=== PATIENT | female | born 1985 | race Caucasian/White ===

== ENCOUNTER 2016-09-15 06:13 | Emergency (ER) | payer BC ==
[2016-09-15 07:10] VITALS: BP 125/75
--- NOTE | 2016-09-15 07:18 | EDM.PDOC ---
ED HPI Trauma - General Chief Complaint: Lower Extremity Injury/Pain Stated Complaint: FALL INJURED LEGS Time Seen by Provider: 09/15/16 06:55 Source: Reports: Patient, RN notes reviewed - History of Present Illness INITIAL COMMENTS - FREE TEXT/NARRATIVE: 31-year-old female comes in with left knee injury. She tripped and fell over"a kiddy pool" late last night walking in the dark. She fell forward landing hard on both knees. Right knee discomfort is fairly mild. The left knee discomfort is fairly severe. She has pain with motion and also pain with weightbearing. No other major discomfort. The discomfort is fairly generalized but more severe anteriorly. Allergies/ADRs: Allergies ceftriaxone [From Rocephin] Allergy (Verified 09/15/16 06:53) Difficulty Breathing Penicillins Allergy (Verified 09/15/16 06:53) Hives Home Medications: Ambulatory Orders FLUoxetine [PROzac] 09/15/16 LORazepam [Ativan] 09/15/16 Review of Systems - Review of Systems Review Of Systems: See Below Constitutional: Reports: no symptoms Eyes: Reports: no symptoms Ears: Reports: no symptoms Nose: Reports: no symptoms Mouth/Throat: Reports: no symptoms Respiratory: Denies: Shortness of Breath Cardiovascular: Denies: chest pain GI/Abdominal: Denies: Abdominal pain, Nausea, Vomiting Musculoskeletal: Reports: joint pain (Left knee) Skin: Reports: no symptoms Neurological: Denies: Numbness, Tingling Trauma Exam - Physical Exam Exam: See Below General Appearance: Reports: alert, mild distress Head: Reports: atraumatic Throat/Mouth: Reports: Normal inspection Neck: Reports: full range of motion Respiratory Exam: Reports: no respiratory distress, lungs clear Cardiovascular: Reports: regular rate, rhythm Extremities: Reports: bony-point tenderness (Anterior knee, medial and lateral knee), other (Joint is stable, no effusion, pain with movement) Course - Vital Signs Last Recorded V/S: Last Vital Signs Temp 98.5 F 09/15/16 07:07 Pulse 78 09/15/16 07:07 Resp 18 09/15/16 07:07 BP 125/75 09/15/16 07:07 Pulse Ox 98 09/15/16 07:07 - Orders/Labs/Meds Orders: Active Orders 24 hr Category Date Time Status Knee Min 4V Lt [CR] Stat Exams 09/15/16 07:10 Taken Durable Medical Equipment for Discharge [DME for Oth 09/15/16 07:25 Ordered Discharge] [COMM] Stat - Re-Assessments/Exams Free Text/Narrative Re-Assessment/Exam: 09/15/16 07:22 x-ray show no fracture Departure - Departure Time of Disposition: 07:22 Disposition: Home, Self-Care 01 Condition: fair Clinical Impression: Fall Qualifiers: Encounter type: initial encounter Qualified Code(s): W19.XXXA - Unspecified fall, initial encounter Knee contusion Qualifiers: Encounter type: initial encounter Laterality: left Qualified Code(s): S80.02XA - Contusion of left knee, initial encounter Referrals: Daja Smith PA-C [Primary Care Provider] - Forms: ED Department Discharge Additional Instructions: jose carlos wrap, ice packs and elevation, tylenol alternating with ibuprofen for mild to moderate discomfort or hydocodone if needed for severe pain. Do not take tylenol and hydrodone at the same time, do not work or drive when taking hydrocodone. Have rechecked at clinic if not getting back to normal within 5-7 days as expected. - My Orders Last 24 Hours: My Active Orders 09/15/16 07:10 Knee Min 4V Lt [CR] Stat 09/15/16 07:25 Durable Medical Equipment for Discharge [DME for Discharge] [COMM] Stat - Assessment/Plan Last 24 Hours: My Active Orders 09/15/16 07:10 Knee Min 4V Lt [CR] Stat 09/15/16 07:25 Durable Medical Equipment for Discharge [DME for Discharge] [COMM] Stat
--- NOTE | 2016-09-15 17:45 | CR ---
Left knee: Four views of the left knee were obtained. Comparison: No previous study. Mild medial joint space narrowing is noted. Lateral joint space is preserved. No joint effusion is seen. Minimal radiopacity projected within the anterior soft tissues of the park, uncertain if this is artifact or represents small calcification or other foreign body. No acute fracture or other bony abnormality is seen. Impression: 1. Mild medial joint space narrowing. 2. Questionable small density within the anterior soft tissues of the proximal park. 3. No acute bony abnormality is identified. Diagnostic code #2
== END 2016-09-15 07:40 | disposition home or self-care (01) ==
LOC: JD.ED 06:13
DX: S80.02XA Contusion of left knee, initial encounter (principal); W01.0XXA Fall on same level from slipping, tripping and stumbling without subsequent striking against object, initial encounter; Z88.0 Allergy status to penicillin; Z88.1 Allergy status to other antibiotic agents
CPT/HCPCS: 73564-26-LT; 73564-LT; 99282; 99283

== ENCOUNTER 2017-09-17 18:10 | Emergency (ER) | payer BC, MEDICAID ==
[2017-09-17 18:31] VITALS: BP 107/52
[2017-09-17] MEDS ORDERED: Metoclopramide 10 MG/2 ML SDV IVPUSH ONE (18:38)
[2017-09-17] MEDS ORDERED: Sodium Chloride 0.9% 2,000 ML IV STA (18:38)
[2017-09-17] MEDS ORDERED: Sodium Chloride 0.9% 10 ML Syringe FLUSH PRN (18:38)
[2017-09-17] MEDS ORDERED: Albuterol 0.083% 2.5 MG/3 ML Neb Soln NEB ONE (18:40)
--- NOTE | 2017-09-17 18:49 | EDM.PDOC ---
<Connor Dickens - Last Filed: 09/17/17 18:42> ED HPI GENERAL MEDICAL PROBLEM - General Chief Complaint: Gastrointestinal Problem Stated Complaint: UPPER RESPITORY,STOMACH ISSUES 18 WEEKS PREG Time Seen by Provider: 09/17/17 18:33 Source of Information: Reports: Patient History Limitations: Reports: No Limitations - History of Present Illness INITIAL COMMENTS - FREE TEXT/NARRATIVE: The patient presents with fever, chills, cough, congestion, runny nose, abdominal pain, nausea and vomiting. This all started on Friday with cough and fever. Then she started vomiting. She is G2 AB1 P1 at 18 weeks gestation. She could not keep anything down. She went to the clinic and she got some fluids and some zofran. She is still coughing and vomiting. She has a history of asthma and she still smokes. She has some chest tightness and wheezing. She denies any spotting or bleeding. She has some generalized abdominal pain. She does not feel the baby moving as much. Onset: Gradual Duration: Day(s): (Friday) Location: Reports: Chest, Abdomen Quality: Reports: Sharp Severity: Moderate Improves with: Reports: None Worsens with: Reports: Movement (coughing) Associated Symptoms: Reports: Cough, cough w sputum, Fever/Chills, Nausea/ Vomiting, Shortness of Breath. Denies: Chest Pain, Headaches, Loss of Appetite Upper Abdomen Pain Score (Numeric/FACES): 5 - Related Data Allergies Allergy/AdvReac Type Severity Reaction Status Date / Time ceftriaxone [From Rocephin] Allergy Difficulty Verified 09/17/17 18:31 Breathing Penicillins Allergy Hives Verified 09/17/17 18:31 Home Meds: Home Meds FLUoxetine [PROzac] 20 mg PO DAILY 09/15/16 [History] Albuterol [Ventolin HFA] 1 puff INH Q4H PRN #1 inhaler 09/17/17 [Rx] Benzonatate [Tessalon Perle] 100 mg PO TID PRN #21 capsule 09/17/17 [Rx] Folic Acid 1 tab PO DAILY 09/17/17 [History] Prednisone [IJD: predniSONE] 40 mg PO WITHBREAKFAST #8 tab 09/17/17 [Rx] Vit W-Ca,Fe,FA(<1 mg) [ Vitamins] 1 tab PO DAILY 09/17/17 [ History] Past Medical History - Past Health History Medical/Surgical History: Denies Medical/Surgical History Psychiatric History: Reports: Anxiety - Past Surgical History GI Surgical History: Reports: Cholecystectomy Social & Family History - Tobacco Use Smoking Status *Q: Current Every Day Smoker Years of Tobacco use: 15 Packs/Tins Daily: 0.1 - Caffeine Use Caffeine Use: Reports: None - Recreational Drug Use Recreational Drug Use: No ED ROS GENERAL - Review of Systems Review Of Systems: See Below Constitutional: Reports: Fever, Chills, Malaise, Weakness, Fatigue HEENT: Reports: No Symptoms Respiratory: Reports: Shortness of Breath, Wheezing, Cough Cardiovascular: Reports: Chest Pain (Tightness) Endocrine: Reports: No Symptoms GI/Abdominal: Reports: Abdominal Pain, Nausea, Vomiting. Denies: Diarrhea : Reports: No Symptoms Skin: Reports: No Symptoms Neurological: Reports: No Symptoms ED EXAM, GI/ABD - Physical Exam Exam: See Below Exam Limited By: No Limitations General Appearance: Alert, No Apparent Distress Ears: Normal External Exam Nose: Normal Inspection Head: Atraumatic, Normocephalic Neck: Normal Inspection Respiratory/Chest: No Respiratory Distress, Wheezing (Moderate) Cardiovascular: Regular Rate, Rhythm, No Edema, No Murmur GI/Abdominal Exam: Soft, Non-Tender, No Organomegaly, No Mass Extremities: Normal Inspection Neurological: Alert, Oriented, No Motor/Sensory Deficits Course - Vital Signs Last Recorded V/S: Last Vital Signs Temp 98.3 F 09/17/17 18:27 Pulse 83 09/17/17 18:27 Resp 16 09/17/17 18:27 BP 107/52 L 09/17/17 18:27 Pulse Ox 96 09/17/17 18:47 - Orders/Labs/Meds Orders: Active Orders 24 hr Category Date Time Status Peripheral IV Care [RC] . DIRECTED Care 09/17/17 18:38 Active RT Aerosol Therapy [RC] ASDIRECTED Care 09/17/17 18:40 Active Chest 1V Frontal [CR] Stat Exams 09/17/17 18:38 Taken OB Ltd 1 or More Fetus [US] Stat Exams 09/17/17 18:40 Taken INFLUENZA A+B AG SCREEN [RM] Stat Lab 09/17/17 19:05 Ordered UA W/MICROSCOPIC [URIN] Stat Lab 09/17/17 19:00 Ordered ED Antiemetic Medication Reflex [OM.PC] Stat Oth 09/17/17 18:38 Ordered Peripheral IV Insertion Adult [OM.PC] Stat Oth 09/17/17 18:38 Ordered Labs: Laboratory Tests 09/17/17 09/17/17 09/17/17 Range/Units 19:00 19:00 19:00 WBC 14.95 H (3.98-10.04) K/mm3 RBC 4.03 (3.98-5.22) M/mm3 Hgb 12.3 (11.2-15.7) gm/L Hct 35.8 (34.1-44.9) % MCV 88.8 (79.4-94.8) fl MCH 30.5 (25.6-32.2) pg MCHC 34.4 (32.2-35.5) g/dl RDW Std Deviation 42.6 (36.4-46.3) fL Plt Count 283 (182-369) K/mm3 MPV 10.6 (9.4-12.3) fl Neut % (Auto) 74.4 H (34.0-71.1) % Lymph % (Auto) 14.6 L (19.3-51.7) % Lynn % (Auto) 8.0 (4.7-12.5) % Eos % (Auto) 2.3 (0.7-5.8) Baso % (Auto) 0.1 (0.1-1.2) % Neut # (Auto) 11.12 H (1.56-6.13) K/mm3 Lymph # (Auto) 2.18 (1.18-3.74) K/mm3 Lynn # (Auto) 1.20 H (0.24-0.36) K/mm3 Eos # (Auto) 0.34 (0.04-0.36) K/mm3 Baso # (Auto) 0.02 (0.01-0.08) K/mm3 Sodium 136 (136-145) mEq/L Potassium 3.8 (3.5-5.1) mEq/L Chloride 102 (98-107) mEq/L Carbon Dioxide 21 (21-32) mEq/L Anion Gap 16.8 H (5-15) BUN 6 L (7-18) mg/dL Creatinine 0.6 (0.55-1.02) mg/dL Est Cr Clr Drug Dosing 134.53 mL/min Estimated GFR (MDRD) > 60 (>60) mL/min BUN/Creatinine Ratio 10.0 L (14-18) Glucose 81 (74-106) mg/dL Calcium 9.0 (8.5-10.1) mg/dL Total Bilirubin 0.3 (0.2-1.0) mg/dL AST 31 (15-37) U/L ALT 49 (14-59) U/L Alkaline Phosphatase 80 (46-116) U/L Total Protein 6.9 (6.4-8.2) g/dl Albumin 3.0 L (3.4-5.0) g/dl Globulin 3.9 gm/dL Albumin/Globulin Ratio 0.8 L (1-2) Lipase 110 (73-393) U/L Urine Color Yellow (Yellow) Urine Appearance Clear (Clear) Urine pH 6.5 (5.0-8.0) Ur Specific [place] 1.020 (1.005-1.030) Urine Protein Negative (Negative) Urine Glucose (UA) Negative (Negative) Urine Ketones 2+ H (Negative) Urine Occult Blood Trace-intact H (Negative) Urine Nitrite Negative (Negative) Urine Bilirubin Negative (Negative) Urine Urobilinogen 0.2 (0.2-1.0) Ur Leukocyte Esterase Negative (Negative) Urine RBC 0-5 (0-5) /hpf Urine WBC 0-5 (0-5) /hpf Ur Epithelial Cells 10-20 H (0-5) /hpf Urine Bacteria Few (FEW) /hpf Urine Mucus Not seen (FEW) /hpf Meds: Medications Discontinued Medications Generic Name Dose Route Start Last Admin Trade Name Freq PRN Reason Stop Dose Admin Albuterol 2.5 mg 09/17/17 18:40 09/17/17 18:47 Proventil Neb Soln NEB 09/17/17 18:41 2.5 mg ONETIME ONE Administration Sodium Chloride 2,000 mls @ 1,000 mls/hr 09/17/17 18:38 09/17/17 18:58 Normal Saline IV 09/17/17 20:37 1,000 mls/hr .BOLUS STA Administration Metoclopramide HCl 10 mg 09/17/17 18:38 04/18/18 18:58 Reglan IVPUSH 04/18/18 18:39 10 mg ONETIME ONE Administration Prednisone 40 mg 09/17/17 20:53 09/17/17 21:22 Prednisone PO 09/17/17 20:54 40 mg ONETIME ONE Administration Sodium Chloride 10 ml 09/17/17 18:38 09/17/17 18:58 Saline Flush FLUSH 10 ml ASDIRECTED PRN Administration Keep Vein Open - Re-Assessments/Exams Free Text/Narrative Re-Assessment/Exam: 09/17/17 18:47 I ordered an IV NS 2L bolus, reglan 10mg IV, albuterol 2.5mg neb, CXR, OB US, labs, and UA. Departure - Departure Disposition: Home, Self-Care 01 Clinical Impression: Bronchitis Oligohydramnios Qualifiers: Fetus number: single or unspecified fetus Trimester: second trimester Qualified Code(s): O41.02X0 - Oligohydramnios, second trimester, not applicable or unspecified - Discharge Information Prescriptions: Albuterol [Ventolin HFA] 1 puff INH Q4H PRN #1 inhaler PRN Reason: Wheezing Benzonatate [Tessalon Perle] 100 mg PO TID PRN #21 capsule PRN Reason: Cough Prednisone [IJD: predniSONE] 40 mg PO WITHBREAKFAST #8 tab Instructions: Oligohydramnios, Nausea and Vomiting, Adult, [id number], Dehydration, Adult, [id number], Abdominal Pain, Adult, Zyso-[id number], Acute Bronchitis, Adult Referrals: Krystina Gonzalez MD [Primary Care Provider] - Forms: ED Department Discharge Additional Instructions: Continue taking all your home medications as prescribed. In addition will have you take prednisone 40 mg for the next 4 days. Tessalon Perles 1 tab 3 times a day as needed for cough. Albuterol inhaler 1 puff every 4 hours as needed for wheezing, cough, shortness of breath. Push the fluids. Eat a balanced diet. Follow-up with [facility] specialist at 20 weeks for follow-up visit or sooner for reevaluation. Return to the ED if he develops any new or worsening symptoms. <Adelso Shea O - Last Filed: 09/17/17 22:51> Course - Re-Assessments/Exams Free Text/Narrative Re-Assessment/Exam: Labs reviewed: White cell count 14.95, hemoglobin 12.3, neutrophil percent is 74.4, with a neutrophil #11.1. Sodium 136, potassium 3.8, CO2 21, AG 16.8, creatinine 0.6, and lipase 110. UA came back 2+ ketones, trace occult blood, epithelial cells 10-20. Influenza screen was negative. CXR reviewed with Dr. Miller with no findings concerning for pneumonia. 2034 Reassessment, patient continues to have wheezing with intermittent rhonchi on auscultation. Patient states she feels much better. Awaiting for US results. 09/17/17 20:55 VRAD: Single live intrauterine gestation, with an estimated gestational age of 19 weeks one day. Normal cardiac activity. Amniotic fluid index measures 6.4 cm. Findings are consistent with oligohydramnios. 09/17/172101 Discussed patient with Dr. Sotelo. Suggested to have the patient stay well hydrated. Followup with OBGYN at 20wks for repeat ultrasound or sooner if any issues. Agrees with prescribing short course of prednisone, albuterol inhaler, and tessalon pearles. Discharge instructions as documented. Departure - Departure Time of Disposition: 21:12 Condition: Good
[2017-09-17] MEDS ORDERED: predniSONE 20 MG Tab PO ONE (20:53)
--- NOTE | 2017-09-18 06:59 | CR ---
Chest: Portable view of the chest was obtained. Comparison: No prior study. Heart size and mediastinum are normal. Lungs are clear. Bony structures are unremarkable. Impression: 1. Nothing acute is seen on portable chest x-ray. Diagnostic code #1
--- NOTE | 2017-09-18 06:59 | US ---
Limited obstetrical ultrasound: Multiple real-time images were obtained. Comparison: No prior obstetrical ultrasound. Dates: Current ultrasound: [facility] 02/10/18, gestational age 19 weeks 1 day presentation: Mobile Placenta: Anterior with no findings of placenta previa Amniotic fluid: RONALD 6.4 cm Measurements: BPD: 4.22 cm - 18 weeks 6 days Head circumference: 16.10 cm - 19 weeks 0 days Abdominal circumference: 13.24 cm - 18 weeks 6 days Femur length: 3.05 cm - 19 weeks 4 days Estimated weight: 271 g (0 lbs. 10 oz.), estimated weight at the 40th percentile for age by current ultrasound Heart rate: 146 bpm Cervical length: 3.4 cm Impression: 1. Single intrauterine fetus currently mobile in presentation. Dates as noted above. 2. Oligohydramnios. Diagnostic code #3 Agree with preliminary report issued by [employer] ([facility] preliminary report dictated on 09/17/17, 9:53 PM Central Time)
== END 2017-09-17 21:30 | disposition home or self-care (01) ==
LOC: JD.ED 18:10
DX: O41.02X0 Oligohydramnios, second trimester, not applicable or unspecified (principal); O99.512 Diseases of the respiratory system complicating pregnancy, second trimester; J40 Bronchitis, not specified as acute or chronic; O99.332 Smoking (tobacco) complicating pregnancy, second trimester; F17.210 Nicotine dependence, cigarettes, uncomplicated; Z88.0 Allergy status to penicillin; Z79.899 Other long term (current) drug therapy; Z3A.18 18 weeks gestation of pregnancy
CPT/HCPCS: 36415; 71045; 76815; 80053; 81001; 83690; 85025; 87804; 94640; 96361; 96374; 99284; A9270; J2765; J7040; J7050